=== PATIENT | female | born 2005 | race Caucasian/White ===

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

== ENCOUNTER 2025-08-28 11:41 | Emergency (ER) | payer OTHER, SELFPAY ==
--- OUTSIDE RECORDS SUMMARY | 2025-08-28 10:35 | XMS_ITS | Encounter Summary ---
Author Organization [facility] Address [address] [place] [address] Care Team Providers Care Lumber Piler Name Role Phone Radha Sanchez NP Primary Care Provider [phone] Reason for Visit * Reason Comments Cough Entered automaticall y based on patient selection in [facility]. Encounter Details Date Type Department Care Team (Late st Contact Info) Description 08/28/2025 10:35 AM MANAGER LEARNING E-Visit [facility] Virtual Care [address] [place] [phone] Avril Herman NP [address] [place] [address] [address] E-Visit for Cough Social History Tobacco Use Types Packs/Day Years Used Date Smoking Tobacco: Never Passive Smoke Exposure: Never Smokeless Tobacco: Never Alcohol Use Standard Drinks/Week Comments Never 0 (1 standard drink = 0.6 oz pur e alcohol) PHQ-2 Answer Date Recorded PHQ-2 Total Score (If total score is 3 or more points, staff should administer the PHQ-9) 0 07/02/2025 AUDIT-C Answer Date Recorded Q1: How often do you have a drink containing alcohol? Never 07/02/2025 Q2: How many drinks containi ng alcohol do you have on a typical day when you are drinking? Patient does not drink Q3: How often do you have si x or more drinks on one occasion? Never 07/02/2025 Personal Safety Answer Date Recorded Have you ever been in or are you currently in a harmful physical or emotional relationship or is someone making you feel afraid or unsafe? Denies 05/26/2023 Comments No Sex and Gender Information Value Date Recorded Sex Assigned at Not on file Legal Sex Female 8:04 PM MANAGER LEARNING Gender Identity Female 05/31/2018 9:47 AM CDT Sexual Orientation Not on file documented as of this encounter Miscellaneous Notes * E-Visit Note - Avril Herman NP - 08/28/2025 11:02 AM CST Julee Casanova 08/28/2025 E-Visit Submission Subjective/Objective: Julee Galvandwin contacted the office today via e-visit for Sinusitis. The patient-submitted questionnaire was assessed for pertinent information and the patient's problem list, medication list, and allergies were reviewed as part of the e-visit. The chart was updated to identify any changes in these areas. Assessment: No diagnosis found. Plan: Needs to be seen in person. Suspicion of Strep. Needs Strep test The patient was given information regarding any new medication(s) prescribed, if applicable, as well as any [id number] remedies. She was given instructions regarding follow up and timeframe if symptoms worsen or don???t improve. These instructions were included in the Zevia message reply tothe patient. Patient Instructions were included in the message reply to patient. My total encounter time on 08/28/2025 was 2 minutes which was spent in the activities documented inthe note. Avril Herman NP GER LEARNING documented in this encounter Plan of Treatment Not on file documented as of this encounter Visit Diagnoses Not on filedocumented in this encounter Care Teams Lumber Piler Relationship Specialty Start Date End Date Radha Sanchez NP [address] [facility] [address] [place] [address] PCP - General Internal Medicine 07/02/25 documented as of this encounter
[2025-08-28 11:47] VITALS: BP 150/76; PULSE 93; RESP 20; TEMP 37.1; O2SAT 99
--- OUTSIDE RECORDS SUMMARY | 2025-08-28 11:47 | XMS_ITS | Clinical Summary ---
Author Organization [facility] Address [address] [place] [address] Care Team Providers Care Manager Foreign Name Role Phone Klaudia Foote MD Primary Care Provider [phone] Source Comments [facility],non-owned Affiliates and Associated Physician Practices is amultiple site organization consisting of ambulatory clinics and hospital sitesin [place], [place], [place]. This disclosure is being madepursuant to the Care Everywhere program and may not contain all information available regarding this patient. Last updated 18.[facility] Allergies Active Allergy Reactions Criticality Noted Date Comments Latex Rash Medium 05/30/2018 Medications * Be aware that medications may not be up to date on this document. Alwaysverify current medications with the patient. desogestrel-et hinyl estradiol (MIRCETTE; AZURETTE; KARIVA) 0.15-0.02/0.01 MG (23/01) tablet 1 Active spironolactone (ALDACTONE) 100 MG tablet 1 Active acetaminophen (TYLENOL) 500 MG tablet Take 1,000 mg by mouth every 4 hours as needed for Fever or Pain Maximum allowable Acetaminophen amount = 4 Grams (4000 mg) / 24 hours. Active Active Problems Problem Noted Date Diagnosed Date Right ankle injury, initial encounter 01/04/2022 Social History Tobacco Use Types Packs/Day Years Used Date Smoking Tobacco: Never Comments Unknown Sex and Gender Information Value Date Recorded Sex Assigned at Not on file Legal Sex Female 10:09 AM EAR PULL MACHINE OPERATOR Gender Identity Not on file Sexual Orientation Not on file Last Filed Vital Signs Vital Sign Reading Time Taken Comments Blood Pressure - - Pulse - - Temperature - - Respiratory Rate - - Oxygen Saturation - - Inhaled Oxygen Concentration - - Weight 71.1 kg (156 lb 12 oz) 01/04/2022 3:01 PM CDT Height 168.8 cm (5' 6.46) 01/04/2022 3:01 PM CD T Body Mass Index 24.95 01/04/2022 3:01 PM CDT Plan of Treatment Health Maintenance Due Date Last Done Comments HIV SCREENING 2020 HPV VACCINE (1 - 3-dose series) 2020 CHLAMYDIA/GONORRHEA SCREENING 2021 MENINGOCOCCAL (Group B) VACC INE SHARED DECISION-MAKING (1 of 2 - Standard) 2021 HEPATITIS C SCREENING 04/22/2023 DTAP/TDAP/TD VACCINES (1 - Tdap) 2024 HEPATITIS B VACCINE (1 of 3 - 19+ 3-dose series) 2024 DEPRESSION SCREENING 09/05/2024 COVID-19 VACCINE (1 - 2024-2 6 season) 2025 INFLUENZA VACCINE (#1) 2025 10/27/2006 ZOSTER VACCINE (1 of 2) 2055 HIB VACCINE Aged Out No longer eligi ble based on patient's age to complete this topic MENINGOCOCCAL GROUPS A/C/Y/W VACCINE Aged Out No longer eligible b ased on patient's age to complete this topic PNEUMOCOCCAL VACCINE Aged Out No long er eligible based on patient's age to complete this topic Insurance [facility] Care Teams Manager Foreign Relationship Specialty Start Date End Date Klaudia Foote MD [address] [place] [id number] PCP - General Pediatrics 01/01/22
--- OUTSIDE RECORDS SUMMARY | 2025-08-28 11:47 | XMS_ITS | Encounter Summary ---
Author Organization [facility] Address [address] [place] [address] Care Team Providers Care Manager Sourcing Name Role Phone Radha Sanchez NP Primary Care Provider [phone] Encounter Details Date Type Department Care Team (Latest Contact Info) Description 07/05/2025 Results Follow-Up [facility] Primary Care at [address] [address] Radha Sanchez NP [address] [place] [address] [address] [place] [address] CBC with auto differential, Comprehensive metabolic panel, Lipid panel, Additional followed-up results: 9 Social History Tobacco Use Types Packs/Day Years [...] on file Legal Sex Female 8:04 PM BIBLICAL STUDIES PROFESSOR Gender Identity Female 05/31/2018 9:47 AM CDT Sexual Orientation Not on file documented as of this encounter Plan of Treatment Not on file documented as of this encounter Visit Diagnoses Diagnosis Bilateral hearing loss, unspecified hearing loss type- Primary documented in this encounter Care Teams Manager Sourcing Relationship Specialty Start Date End Date Radha Sanchez NP [address] [address] PCP - General Internal Medicine 07/02/25 documented as of this encounter
--- OUTSIDE RECORDS SUMMARY | 2025-08-28 11:47 | XMS_ITS | Clinical Summary ---
Author Organization [facility] Address [address] [place] [address] Care Team Providers Care Retail Warehouse Supervisor Name Role Phone Radha Sanchez NP Primary Care Provider [phone] Allergies Active Allergy Reactions Criticality Noted Date Comments Latex Rash Medium 05/30/2018 Medications cetirizine (ZyrTEC) 10 mg chewable tablet Take 1 tablet (10 mg total) by mouth daily Active levonorgestreL (Mirena) IUD Take 1 device by intrauterine route. 4 Active Hospital, Clinic, or Other Facility Administered Medication Ordered Dose Route Frequency Start Date End Date Status perflutren protein-a (OPTISON) 3 mL in sodium chloride 0.9% 8 mL syringe 1 - 8 mL IV Once in imaging 04/11/2024 Active Active Problems Problem Noted Date Diagnosed Date Wellness examination 07/02/2025 Assessment & Plan (07/02/2025 9:38 AM CDT): Routine health maintenance objectives discussed and orders placed for any outstanding screening studies. Physical exam performed as above. Routine annual labs obtained and will be reviewed with patient when results available. Encouraged regular physical activity--moderate activity for a total of 150 minutes per week over 3-5 days. Encouraged healthy diet with regular fresh fruits and vegetables limited in processed carbohydrates. Alcohol use - never Nicotine use - never Depression screening - PHQ Screening Over the past 2 weeks, how often have you been bothered by any of the following problems? Little Interest or Pleasure in Doing Things: 0-Not at all Feeling Down, Depressed, or Hopeless: 0-Not at all PHQ-2 Total Score (If total score is 3 or more points, staff should administer the PHQ-9): 0 Orders: CBC with auto differential; Future Comprehensive metabolic panel; Future Lipid panel; Future Resolved Problems Problem Noted Date Diagnosed Date Resolved Date Sinus tachycardia 04/11/2024 07/02/2025 Assessment & Plan (04/11/2024 8:34 AM CDT): [...] resolve or improve over time Diarrhea 05/18/2023 07/02/2025 Weight loss 05/18/2023 07/02/2025 Contusion of right foot 06/02/201806/06 Closed fracture of fifth metatarsal bone 11/29/2016 07/02/2025 Encounters Date Type Department Care Team Description 08/28/2025 10:35 AM BOAT OAR MAKER E-Visit [facility] Medical [facility] Virtual Care [address] [place] [address] Avril Herman NP E-Visit for Cough 08/28/2025 Patient Self-Triage [facility] HealthCare/ Physicians [address] [place] [address] Mychart, Generic Provider 07/26/[address] [facility] Medical [facility] Primary Care at [address] [address] Therien, Radha R., DEBT COLLECTION SPECIALIST Bilateral hearing loss, unspecified hearing loss type (Primary Dx) 07/10/2025 2:45 PM BOAT OAR MAKER - 07/10/2025 11:59 PM BOAT OAR MAKER Hospital Encounter [facility] [address] [place] [address] Bilateral hearing loss, unspecified hearing loss type Discharge Disposition: Discharge to home or self care 07/05/2025 Results Follow-Up [facility] Primary Care at [address] [address] Radha Sanchez NP CBC with auto differential, Comprehensive metabolic panel, Lipid panel, Additional followed-up results: 9 07/02/2025 9:45 AM CDT Lab [address] [address] Wellness examination; Screening for thyroid disorder; Fatigue, unspecified type; Hair loss; Need for hepatitis C screening test 07/02/2025 9:00 AM CDT Office Visit [facility] Primary Care at [address] [address] Radha Sanchez DEBT COLLECTION SPECIALIST BMI 26.0-26.9,adult (Primary Dx); Encounter for immunization; Wellness examination; Screening for thyroid disorder; Fatigue, unspecified type; Bilateral hearing loss, unspecified hearing loss type; Need for hepatitis C screening test; Hair loss from Last 3 Months Immunizations Immunization Administration Dates Next Due DTaP, Unspecified 12/25/2009, 7,2005,09/13,2005 HPV, Quadrivalent 03/30/2021,04/23/2020 Hep A, Unspecified 05/03/2008,10/27/2006 Hep B, Unspecified 2005, 6,2005,04/26 HiB 2005,2005 Influenza, Quadrivalent, Spl it, Preservative Free, Intramuscular 08/25/2023 Influenza, Trivalent, Preser vative Free, Intramuscular 07/02/2025,07/29/2024 Influenza, Unspecified 07/29/2024 MMR 12/25/2009,04/29/2006 Meningococcal A,C,W,Y-TT (Ak a Menquadfi) 04/30/2022 Meningococcal B, OMV (Bexsero) 03/23/2023 Meningococcal Conjugate (Menveo) 2016 Pneumococcal Conjugate PCV 13 04/29/2006 ,2005,2005,07/02 Polio, Unspecified 12/25/2009, 6,2005,07/02 Tdap 03/01/2016 Varicella 12/25/2009,04/29/2006 Surgical History Surgery Date Site/Laterality Comments WISDOM TOOTH EXTRACTION Medical History Medical History Date Comments No known health problems Anemia Family History Medical History Relation Name Comments No Known Problems Father No Known Problems Mother Relation Name Status Comments Father Alive Mother Alive Social History Tobacco Use Types Packs/Day Years Used Date Smoking Tobacco: Never Passive Smoke Exposure: Never Smokeless Tobacco: Never Tobacco Cessation:Counseling Given: Not Answered Alcohol Use Standard Drinks/Week Comments Never 0 [...] on file Legal Sex Female 8:04 PM BOAT OAR MAKER Gender Identity Female 05/31/2018 9:47 AM CDT Sexual Orientation Not on file Last Filed Vital Signs Vital Sign Reading Time Taken Comments Blood Pressure 90/54 07/02/2025 9:04 AM CDT Pulse 107 07/02/2025 9:04 AM CDT Temperature 36.3 C (97.4 F) 07/02/2025 9:04 AM CDT Respiratory Rate 16 07/02/2025 9:04 AM CDT Oxygen Saturation 99% 07/02/2025 9:04 AM CDT Inhaled Oxygen Concentration - - Weight 76.7 kg (169 lb) 07/02/2025 9:04 AM CDT Height 170.2 cm (5' 7) 07/02/2025 9:04 AM CDT Body Mass Index 26.47 07/02/2025 9:04 AM CDT Plan of Treatment Health Maintenance Due Date Last Done Comments Meningococcal B Vaccine (2 o f 2 - Bexsero SCDM 2-dose series) 09/23/2023 03/23/2023 Covid-19 Vaccine (5 - 2024-2 6 season) 2025 07/29/2024, 08/18/2021, 02/04/2021, Additional history exists DTaP/Tdap/Td Vaccine (7 - Td or Tdap) 03/01/2026 03/01/2016, 12/25/2009, 10/27/2006, Additional history exists Depression Screening 07/02/2026 07/02/2025 Regular Well Visit/Exam 18-64 07/02/2026 07/02/2025 Hepatitis B Screening Completed 2005 , 2005, 2005, Additional history exists Pneumococcal vaccine <65 Completed 006, 2005, 2005, Additional history exists Varicella Vaccines Completed 12/25/2009, 04/29/2006 HPV Vaccines Completed 03/30/2021, 04/23/2020 Meningococcal Vaccine Completed 04/30/2022, 016 Hepatitis C Screening Completed 07/02/2025 Influenza Vaccine Completed 07/02/2025, , 07/29/2024, Additional history exists Procedures Procedure Name Priority Date/Time Associated Diagnosis Comments MRI INTERNAL AUDITORY CANAL INCL BRAIN W WO CONTRAST Schedule Routine, Read Routine (OP Routine) 07/10/2025 3:37 PM BOAT OAR MAKER Bilateral hearing loss, unspecified hearing loss type EGFR Routine 07/02/2025 9:54 AM CDT Wellness examination DIFFERENTIAL AUTO Routine 07/02/2025 9:5 4 AM CDT Wellness examination IRON PROFILE W/ IBC Routine 07/02/2025 9 :54 AM CDT Fatigue, unspecified type Hair loss FERRITIN Routine 07/02/2025 9:54 AM CDT Fatigue, unspecified type Hair loss VITAMIN B12 Routine 07/02/2025 9:54 AM CDT Fatigue, unspecified type Hair loss VITAMIN D 25 HYDROXY Routine 07/02/2025 9:54 AM CDT Fatigue, unspecified type THYROID FUNCTION CASCADE Routine 07/02/2025 9:54 AM CDT Screening for thyroid disorder Fatigue, unspecified type Hair loss LIPID PANEL Routine 07/02/2025 9:54 AM CDT Wellness examination COMPREHENSIVE METABOLIC PANEL Routine 07/02/2025 9:54 AM CDT Wellness examination CBC WITH AUTO DIFFERENTIAL Routine 07/02/2025 9:54 AM CDT Wellness examination HEPATITIS C ANTIBODY Routine 07/02/2025 9:54 AM CDT Need for hepatitis C screening test from Last 3 Months Results * MRI Internal Auditory Canal Brain W WO Contrast (07/10/2025 3:37 PM BOAT OAR MAKER) Anatomical Region Laterality Modality Head and Neck N/A Magnetic Resonan ce 07/10/2025 3:46 PM BOAT OAR MAKER Impressions 07/10/2025 3:46 PM BOAT OAR MAKER No acute intracranial process with slight chronic findings as above. Electronically signed by: Gibran Sanderson M.D. Narrative 07/10/2025 3:46 PM BOAT OAR MAKER EXAMINATION: MRI BRAIN WITHOUT AND WITH CONTRAST (IAC PROTOCOL) REASON FOR STUDY: Chronic unspecified type and laterality hearing loss for 3 years. No provided focal neurologic deficits. No provided history of trauma or inciting and/or aggravating events. No head or neck surgeries. TECHNIQUE: Multiplanar imaging of the brain includes noncontrast T1, T2, FLAIR, diffusion with ADC map and post contrast T1 sequences. Additional sequence(s) sensitive to blood products. Images saved to PACS. CONTRAST: 15 mL Gadoterate Meglumine was administered via peripheral IV site. COMPARISON: No prior neuroimaging available at time of interpretation. FINDINGS: CEREBRUM: No acute intra-axial hemorrhage. No edema, mass effect, midline shift, or herniation. WHITE MATTER: Few widely scattered punctate to tiny periventricular subcortical T2/FLAIR hyperintense white matter matter lesions, nonspecific, though can be seen secondary to chronic microvascular ischemia, chronic headaches sores include migraine headaches, demyelinating disease to include multiple sclerosis, and as sequelae of prior traumatic and/or inflammatory, to include infectious, insults. Correlate with clinical context. POSTERIOR FOSSA: Brainstem and cerebellum are unremarkable. No abnormal enhancement. DIFFUSION IMAGING: No restricted diffusion to suggest acute/subacute ischemia or infarct. EXTRAAXIAL SPACES: No extra-axial fluid collection, mass, or abnormal enhancement to include at the IACs or about the cerebellopontine angles. BRAIN VOLUME: Cerebral volume within normal limits for age. PITUITARY: Unremarkable. VASCULATURE: No flow disturbance evident. SCALP/CALVARIUM: Scalp unremarkable. Calvarium unremarkable. ORBITS: No acute abnormality. Ocular lenses and globes normal in conformation and position. PARANASAL SINUSES AND MASTOIDS: Paranasal sinuses clear. Mastoid air cells well-developed and well aerated. OTHER: None. Procedure Note Gibran Sanderson MD - 07/10/2025 EXAMINATION: MRI BRAIN WITHOUT AND WITH CONTRAST (IAC PROTOCOL) REASON FOR STUDY: Chronic unspecified type and laterality hearing loss for 3 years. No provided focal neurologic deficits. No provided history of trauma or inciting and/or aggravating events. No head or neck surgeries. TECHNIQUE: Multiplanar imaging of the brain includes noncontrast T1, T2, FLAIR, diffusion with ADC map and post contrast T1 sequences. Additional sequence(s) sensitive to blood products. Images saved to PACS. CONTRAST: 15 mL Gadoterate Meglumine was administered via peripheral IV site. COMPARISON: No prior neuroimaging available at time of interpretation. FINDINGS: CEREBRUM: No acute intra-axial hemorrhage. No edema, mass effect, midline shift, or herniation. WHITE MATTER: Few widely scattered punctate to tiny periventricular subcortical T2/FLAIR hyperintense white matter matter lesions, nonspecific, though can be seen secondary to chronic microvascular ischemia, chronic headaches sores include migraine headaches, demyelinating disease to include multiple sclerosis, and as sequelae of prior traumatic and/or inflammatory, to include infectious, insults. Correlate with clinical context. POSTERIOR FOSSA: Brainstem and cerebellum are unremarkable. No abnormal enhancement. DIFFUSION IMAGING: No restricted diffusion to suggest acute/subacute ischemia or infarct. EXTRAAXIAL SPACES: No extra-axial fluid collection, mass, or abnormal enhancement to include at the IACs or about the cerebellopontine angles. BRAIN VOLUME: Cerebral volume within normal limits for age. PITUITARY: Unremarkable. VASCULATURE: No flow disturbance evident. SCALP/CALVARIUM: Scalp unremarkable. Calvarium unremarkable. ORBITS: No acute abnormality. Ocular lenses and globes normal in conformation and position. PARANASAL SINUSES AND MASTOIDS: Paranasal sinuses clear. Mastoid air cells well-developed and well aerated. OTHER: None. IMPRESSION: No acute intracranial process with slight chronic findings as above. Electronically signed by: Gibran Sanderson M.D. Radha Sanchez DEBT COLLECTION SPECIALIST IMG MRI PROCEDURES Final R esult * eGFR (07/02/2025 9:54 AM CDT) eGFR >90 >=60 mL/min/1. 73 m2 Comment: Interpretive Data Reference Interval Normal >/= 90 mL/min/1.73m2 Mildly decreased* 60 - 89 mL/min/1.73m2 Mildly to moderately decreased 45 - 59 mL/min/1.73m2 Moderately to severely decreased 30 - 44 mL/min/1.73m2 Severely decreased 15 - 29 mL/min/1.73m2 Kidney Failure < 15 mL/min/1.73m2 *Relative to young adult level Estimated glomerular filtration rate is determined by the 2020 CKD-EPI equation recommended by the National Kidney Foundation (A Unifying Approach to GFR Estimation: Recommendations of the NKF-ASK Task Force on Reassessing the Inclusion of Race in Diagnosing Kidney Disease, JASN 2020). The CKD-EPI equation should not be used for patients with unstable renal function and has not been validated in children and those over 70. Current interpretive data was last reviewed 2021. Blood 07/02/2025 9:54 AM CDT 07/02/2025 1:51 PM CDT us Radha Sanchez NP LAB BLOOD ORDERABLES Final Result [facility] [address] [facility] Department [place] [address] * Differential, auto (07/02/2025 9:54 AM CDT) Pathologist [facility] Neutrophil abs 4.14 1.50 - 6.50 K/cumm Imm gran abs 0.01 0.00 - 0.10 K/cumm [facility] Lymphocyte abs 2.01 0.80 - 3.30 K/cumm [facility] Monocyte abs 0.58 0.20 - 0.80 K/cumm [facility] Eosinophil abs 0.11 0.00 - 0.50 K/cumm [facility] Basophil abs 0.03 0.00 - 0.10 K/cumm [facility] Neutrophil pct 60.3 % [facility] Comment: Interpretive Data Percent cell count reference ranges are not reported, since discordance with absolute values may lead to misinterpretation of CBC data. Current Interpretive Data was last revised on 2017. Imm gran pct 0.1 % [facility] Comment: Interpretive Data Percent cell count reference ranges are not reported, since discordance with absolute values may lead to misinterpretation of CBC data. Current Interpretive Data was last revised on 2017. Lymphocyte pct 29.2 % [facility] Comment: Interpretive Data Percent cell count reference ranges are not reported, since discordance with absolute values may lead to misinterpretation of CBC data. Current Interpretive Data was last revised on 2017. Monocyte pct 8.4 % [facility] Comment: Interpretive Data Percent cell count reference ranges are not reported, since discordance with absolute values may lead to misinterpretation of CBC data. Current Interpretive Data was last revised on 2017. Eosinophil pct 1.6 % [facility] Comment: Interpretive Data Percent cell count reference ranges are not reported, since discordance with absolute values may lead to misinterpretation of CBC data. Current Interpretive Data was last revised on 2017. Basophil pct 0.4 % [facility] Comment: Interpretive Data Percent cell count reference ranges are not reported, since discordance with absolute values may lead to misinterpretation of CBC data. Current Interpretive Data was last revised on 2017. Blood 07/02/2025 9:54 AM CDT 07/02/2025 1:53 PM CDT Radha Sanchez DEBT COLLECTION SPECIALIST LAB BLOOD ORDERABLES Final Result Performing Organization Address [facility] Co de Phone Number [address] [place] [address] * Thyroid Function Roberts (07/02/2025 9:54 AM CDT) Pathologist [facility] TSH 0.73 0.30 - 4.20 mcIUnit/mL Blood 07/02/2025 9:54 AM CDT 07/02/2025 1:51 PM CDT Radha Sanchez DEBT COLLECTION SPECIALIST LAB BLOOD ORDERABLES Final Result Performing Organization Address [facility] de Phone Number [address] [place] [address] * (ABNORMAL) Iron profile w/ IBC (07/02/2025 9:54 AM CDT) Pathologist [facility] Iron 172(H) 35 - 145 mcg/dL TIBC 281 250 - 400 mcg/dL [facility] Transferrin saturation 61(H) 20 - 50 % [facility] Blood 07/02/2025 9:54 AM CDT 07/02/2025 1:51 PM CDT Radha Sanchez DEBT COLLECTION SPECIALIST LAB BLOOD ORDERABLES Final Result Performing Organization Address [facility] Co de Phone Number [address] [place] [address] * CBC with auto differential (07/02/2025 9:54 AM CDT) WBC 6.88 3.80 - 9.90 K/cumm Hgb 13.5 11.9 - 15.5 g/dL [facility] Hct 41.3 35.6 - 45.5 % [facility] Plt 219 150 - 400 K/cumm [facility] MPV 11.3 9.1 - 12.3 fL [facility] RBC 4.46 3.90 - 5.20 M/cumm [facility] MCV 92.6 81.3 - 96.4 fL [facility] MCH 30.3 27.1 - 33.3 pg [facility] MCHC 32.7 32.3 - 35.7 g/dL [facility] RDW CV 12.0 11.1 - 14.9 % [facility] RDW SD 40.6 35.7 - 48.1 fL [facility] NRBC abs 0.00 0.00 - 0.01 K/cumm [facility] Blood 07/02/2025 9:54 AM CDT 07/02/2025 1:53 PM CDT Radha Sanchez DEBT COLLECTION SPECIALIST LAB BLOOD ORDERABLES Final Result [facility] [address] [facility] Department of Laboratories [place], [place] [id number] * Hepatitis C antibody Blood (07/02/2025 9:54 AM CDT) Hep C Ab Nonreactive Nonreactive Comment: Antibodies to HCV not detected. Does NOT exclude the possibility of recent exposure to HCV. Current interpretive data was last revised on 22 Interpretive Data Nonreactive: Antibodies to HCV not detected. Does NOT exclude the possibility of recent exposure to HCV. Equivocal: Equivocal for HCV antibodies. Supplemental molecular testing will be automatically performed to determine infection status in accordance with current CDC screening recommendations. Reactive: Positive for HCV antibodies. This may represent current or past HCV infection. Supplemental molecular testing will be automatically performed to determine current infection status in accordance with current CDC screening recommendations. Interpretive data was last revised on 2019. Blood 07/02/2025 9:54 AM CDT 07/02/2025 1:51 PM CDT Radha Sanchez DEBT COLLECTION SPECIALIST LAB MICROBIOLOGY - GENERAL ORDERABLES Final Result Performing Organization Address City/[facility]/ZIP Co de Phone Number [address] [place] [address] * (ABNORMAL) Vitamin D 25 hydroxy (07/02/2025 9:54 AM CDT) Vitamin D 25-OH 25.0(L) 30.0 - 80.0 ng/mL Blood 07/02/2025 9:54 AM CDT 07/02/2025 1:51 PM CDT Radha Sanchez DEBT COLLECTION SPECIALIST LAB BLOOD ORDERABLES Final Result Performing Organization Address [facility] Co de Phone Number [address] [place] [address] * (ABNORMAL) Ferritin (07/02/2025 9:54 AM CDT) Pathologist [facility] Ferritin 231(H) 13 - 150 ng/mL Blood 07/02/2025 9:54 AM CDT 07/02/2025 1:51 PM CDT Radha Sanchez DEBT COLLECTION SPECIALIST LAB BLOOD ORDERABLES Final Result Performing Organization Address City/[facility] Co de Phone Number [address] [place] [address] * Vitamin B12 (07/02/2025 9:54 AM CDT) Vitamin B12 528 230 - 1,250 pg/mL Blood 07/02/2025 9:54 AM CDT 07/02/2025 1:51 PM CDT Radha Sanchez DEBT COLLECTION SPECIALIST LAB BLOOD ORDERABLES Final Result Performing Organization Address City/[facility]/ZIP Co de Phone Number [address] [place] [address] * Lipid panel (07/02/2025 9:54 AM CDT) Cholesterol 196 30 - 199 mg/dL Comment: Interpretive Data Ages < or = 19 years Acceptable: <170 mg/dL Borderline high: 170-199 mg/dL High: >or= 200 mg/dL Ages > or = 20 years Desirable: <200 mg/dL Borderline high: 200-239 mg/dL High: >or= 240 mg/dL Literature References: 1. Expert Panel on Integrated Guidelines for Cardiovascular Health and Risk Reduction in Children and Adolescents. Pediatrics 2011;128:S213 2. NCEP Expert Panel. Circulation 2004;110:227 Current Interpretive Data was last revised on 2018. Triglycerides 149 <=149 mg/dL [facility] Comment: Interpretive Data Ages < or = 9 years Acceptable: <75 mg/dL Borderline high: 75-99 mg/dL High: >or= 100 mg/dL Ages 10 to 20 years Acceptable: <90 mg/dL Borderline high: 90-129 mg/dL High: >or= 130 mg/dL Ages > or = 20 years Desirable: <150 mg/dL Borderline high: 150-199 mg/dL High: 200-499 mg/dL Very high: >or= 499 mg/dL Literature References: 1. Expert Panel on Integrated Guidelines for Cardiovascular Health and Risk Reduction in Children and Adolescents. Pediatrics 2011;128:S213 2. NCEP Expert Panel. Circulation 2004;110:227 Current Interpretive Data was last revised on 2018. HDL 41 >=40 mg/dL [facility] Comment: Interpretive Data Ages < or = 19 years Acceptable: >45 mg/dL Borderline low: 40-45 mg/dL Low: <40 mg/dL Ages > or = 20 years Desirable: >or= 60 mg/dL Low: <40 mg/dL Literature References: 1. Expert Panel on Integrated Guidelines for Cardiovascular Health and Risk Reduction in Children and Adolescents. Pediatrics 2011;128:S213 2. NCEP Expert Panel. Circulation 2004;110:227 Current Interpretive Data was last revised on 2018. LDL, calculated 128 <=129 mg/dL [facility] Comment: Interpretive Data Ages < or = 19 years Acceptable: <110 mg/dL Borderline high: 110-129 mg/dL High: >or= 130 mg/dL Ages > or = 20 years Optimal: <100 mg/dL Near optimal: 100-129 mg/dL Borderline high: 130-159 mg/dL High: >160 mg/dL Calculated using the Peña LDL-C estimating equation. This equation was implemented on 2024. Prior to this date LDL-C was estimated using the Friedewald equation. Literature References: 1. Expert Panel on Integrated Guidelines for Cardiovascular Health and Risk Reduction in Children and Adolescents. Pediatrics 2011;128:S213 2. NCEP Expert Panel. Circulation 2004;110:227 3. Peña Adams et al. LUNA Cardiol. 2020 January 03;5(5):540-548. doi: 10.1001/[email or web address].2020.0013 Current Interpretive Data was last revised on 2024. Non-HDL Cholesterol 155 mg/dL [facility] Comment: Interpretive Data Ages < or = 19 years Acceptable: <120 mg/dL Borderline high: 120-144 mg/dL High: >145 mg/dL Ages > or = 20 years When triglycerides are >200 mg/dL, Non-HDL cholesterol is a secondary target of therapy with treatment goals that are 30 mg/dL greater than the LDL cholesterol target. Literature References: 1. Expert Panel on Integrated Guidelines for Cardiovascular Health and Risk Reduction in Children and Adolescents. Pediatrics 2011;128:S213 2. NCEP Expert Panel. Circulation 2004;110:227 Current Interpretive Data was last revised on 2018. Chol/HDL ratio 5 [facility] Blood 07/02/2025 9:54 AM CDT 07/02/2025 1:51 PM CDT Narrative [facility] - 07/02/2025 2:40 PM CDT Has the patient been fasting for 8 hours or more?->Yes us Radha Sanchez NP LAB BLOOD ORDERABLES Final Result [facility] [address] [facility] Department [place] [address] * Comprehensive metabolic panel (07/02/2025 9:54 AM CDT) Sodium 141 135 - 145 mmol/L Potassium, pl 3.7 3.3 - 4.9 mmol/L [facility] Chloride 103 97 - 110 mmol/L [facility] CO2 27 22 - 32 mmol/L [facility] Anion gap 11 2 - 15 mmol/L [facility] BUN 13 6 - 25 mg/dL [facility] Creatinine 0.72 0.60 - 1.10 mg/dL [facility] Glucose 102 70 - 199 mg/dL [facility] Comment: Interpretive Data Fasting glucose >/= 126 mg/dl is diagnostic for diabetes. Fasting is defined as no caloric intake for at least 8 hours. Fasting glucose between 100 mg/dl to 125 mg/dl is diagnostic of prediabetes. In a patient with classic symptoms of hyperglycemia or hyperglycemic crisis, a random glucose >/= 200 mg/dl is diagnostic for diabetes. In the absence of unequivocal hyperglycemia, results should be confirmed by repeat testing. The classification and Diagnosis of Diabetes Diabetes Care 202; 46: S19-S40. Current interpretive data was last revised 2022. Calcium 9.8 8.5 - 10.3 mg/dL [facility] Bilirubin, total 0.4 0.1 - 1.2 mg/dL [facility] Protein, pl 7.2 6.5 - 8.5 g/dL [facility] Albumin 4.6 3.5 - 5.0 g/dL [facility] Alk phos 99 40 - 130 Units/L [facility] ALT 15 7 - 45 Units/L [facility] AST 24 10 - 45 Units/L [facility] Blood 07/02/2025 9:54 AM CDT 07/02/2025 1:51 PM CDT Radha Sanchez DEBT COLLECTION SPECIALIST LAB BLOOD ORDERABLES Final Result [facility] [address] [facility] Department [place] [address] from Last 3 Months Insurance [facility] CLAIMS [facility] CLAIMS [facility] CLAIM[facility]S [facility] CLAIMS Care Teams Retail Warehouse Supervisor Relationship Specialty Start Date End Date Radha Sanchez NP [address] [facility] [address] [place] [address] PCP - General Internal Medicine 07/02/25
--- OUTSIDE RECORDS SUMMARY | 2025-08-28 11:47 | XMS_ITS | Encounter Summary ---
Author Organization [facility] Address [address] [place] [address] Care Team Providers Care Saturator Operator Name Role Phone Radha Sanchez NP Primary Care Provider [phone]- [phone] Encounter Details Date Type Department Care Team (Late st Contact Info) Description 08/28/2025 Patient Self-Triage [facility] [address] [place] [address] Elodia Nolan Provider [address] [place], [place] [id number] Social History Tobacco Use Types Packs/Day Years [...] on file Legal Sex Female 8:04 PM TIE LAYER Gender Identity Female 05/31/2018 9:47 AM CDT Sexual Orientation Not on file documented as of this encounter Plan of Treatment Not on file documented as of this encounter Visit Diagnoses Not on filedocumented in this encounter Care Teams Saturator Operator Relationship Specialty Start Date End Date Radha Sanchez NP [address] [facility] [address] [place] [address] PCP - General Internal Medicine 07/02/25 documented as of this encounter
--- OUTSIDE RECORDS SUMMARY | 2025-08-28 11:48 | XMS_ITS | Continuity of Care Document ---
Author Organization [facility] [place] Address [address] [place] [address] Care Team Providers Care Brasswind Instrument Repairer Name Role Phone ELVA AG Primary Care Provider [phone] Assessment Encounter Date Assessment Date Assessment LastModified by Organization Details LastModified Time 08/07/2025 08/07/2025 Annual gynecological exam performed. Patient will come back in a year unless there are new symptoms. [email or web address] Not available 08/07/2025 12:16:45 Plan of Treatment Reminders Order Date Submit Date Provider Last Modified By Organization Details Last Modified Time Details Appointments [facility]- EST 026 11:00AM BENITA FISHER NP Not available Not available Not available Lab None record ed. Referral None record ed. Procedures None record ed. Surgeries None record ed. Imaging None record ed. Medication Orders None record ed. Patient TargetsNo targets recorded. Patient InstructionsNo instructions recorded. Reason for Referral None Reported. Problems Name Problem SNOMED Code Status Onset Date Resolution Date Notes Provider Name and Address Organization Details Recorded Time Finding of menstrual bleeding Completed 201804/29/2021 Menorrhag ia;Record ed Elsewhere : No Locati on: [facility] So urce: EHR Chron ic: N Practic e ID: [id number] Bill able Time: 03:30:00 PM Lola marshall [facility] 18:04:10 Pain in female genitalia Completed 201904/29/2021 Dysmenorr hea;Recor ded Elsewhere : No Locati on: [facility] So urce: EHR Chron ic: N Practic e ID: [id number] Bill able Time: 04:30:00 PM Lola Jacek marshall, [facility] 18:04:08 Finding of regularit y of menstrual cycle Completed 201904/29/2021 Irregular bleeding; Recorded Elsewhere : No Locati on: [facility] So urce: EHR Chron ic: N Practic e ID: [id number] Bill able Time: 04:30:00 PM Lola Raymondtz joanna, [facility] 18:04:11 Problem Notes None recorded. Procedures Surgical History Date Name Laterality Status Provider Name and Address Organization Details Recorded Time 08/22/20 24 IUD Insertion completed BENITA FISHER NP [address], [place], [address], [facility] 08/22/2024 16:15:57 05/26/20 23 completed [facility] 08/01/2024 11:04:44 05/26/20 23 Date of Last Colonoscopy completed [facility] 08/01/2024 11:04:44 05/26/20 23 colonoscopy completed Ariana Chávez VISHAL- [address], [place], [address], [facility] 06/22/2023 17:34:48 04/05/20 21 extraction of wisdom tooth completed Lola Raed [facility] 04/29/2021 18:07:06 Orthopedic Surgery completed Loladuncan Read [facility] 12/29/2022 17:08:07 Imaging Results None recorded. Procedure Notes None recorded. Medical Equipment None Reported. Allergies Allergen ID Allergen Name Allergen Category Reaction Reaction Severity Criticality Documentation Date Start Date Code Code System Note Provider Name and Address Organization Details Recorded Time 47109 latex environme nt,medica tion Not available Not available Not available 08/22/2020 72237 91 RxNorm Comme nt: [facility]; Not Available [facility] 0 14:17:56 Medications Name Sig Start Date Stop [...] Prescrib ed Elsewher e: No Locat ion: [facility] odify By: valentin ireland DateTime : 08/21/20 19 03:30:00 PM Not Available Not Available Not Available prednison e 20 mg tablet 08/01 completed Not Available Not Available Not Available spironola ctone 100 mg tablet TAKE 1 TABLET BY MOUTH EVERY DAY active Not Available Not Available No t Available penicilli n V potassium 500 mg tablet 12/29 completed Not Available Not Available Not Available clindamyc in 1 %-benzoyl peroxide 5 % topical gel 08/01 completed Not Available Not Available Not Available triamcino lone acetonide 0.1 % topical ointment 10/19 completed Not Available Not Available Not Available methylpre dnisolone 4 mg tablets in a dose pack 06/22 completed Not Available Not Available Not Available dicyclomi ne 10 mg capsule 08/01 completed Not Available Not Available Not Available Sprintec (28) 0.25 mg-0.035 mg tablet take 1 tablet by oral route every day 08/21 completed Prescrib ed Elsewher e: No Locat ion: [facility] odify By: sgrotefe ndt Jino terrie DateTime : 05/31/20 19 03:15:00 PM Not Available Not Available Not Available Lo Loestrin Fe 1 mg-10 mcg (24)/10 mcg (2) tablet take 1 tablet by oral route every day 08/21 completed Prescrib delma Terrell e: Gladys Locat ion: Flako lamas [facility] M jose By: chandrika gil DateTime : 08/21/20 03:30:00 PM Not Available Not Available Not Available Viorele (28) 0.15 mg-0.02 mg (21)/0.01 mg (5) tablet TAKE 1 TABLET BY MOUTH EVERY DAY 08/07 completed Not Available Not Available Not Available adapalene 0.1 %-benzoyl peroxide 2.5 % topical gel with pump 08/01 completed Not Available Not Available Not Available Zumandimi ne (28) 3 mg-0.03 mg tablet TAKE 1 TABLET BY MOUTH ONCE DAILY FOR 28 DAYS 12/29 completed Not Available Not Available Not Available aspirin 81 mg capsule Take 1 capsule every day by oral route. 08/07 completed Not Available Not Available Not Available Vitals Date Recorded Body height Body mass index (BMI) [Percentile] Per age and sex Body mass index (BMI) Body weight Systolic And Diastolic Provider Name and Address Organization Details Last Updated DateTime 08/07/2025 167.64 cm 87 % 27.3 kg/m2 14903.5 5 g 132/84 mm[Hg] Madelinjocelin Rollins [facility] 12:23:39 Social History Question Answer Notes LastModified by Organizat ion Details LastModified Time Tobacco Smoking Status Never Smoker Lola marshall, [facility] 12/29/2022 17:08:07 If You Are , What Was Your Level Of Alcohol Consumption Prior To ? None [email or web address] Information not available 12/29/2022 How Many Years Have You Consumed Alcohol? 0 [email or web address] Information not available 08/22/2024 Are You Blind Or Do You Have Difficulty Seeing? Yes [email or web address] Information n ot available 08/01/2024 What Is Your Level Of Caffeine Consumption? Moderate [email or web address] Information not available 12/29/2022 How Much Tobacco Do You Chew? None [email or web address] Information not available 12/29/2022 In The 14 Days Before Symptom Onset, Have You Had Close Contact With A Laboratory-confirm ed COVID-19 While That Case Was Ill? No Information n ot available 04/29/2021 In The 14 Days Before Symptom Onset, Have You Had Close Contact With A Person Who Is Under Investigation For COVID-19 While That Person Was Ill? No [email or web address] Information not available 04/29/2021 Have You Been To An Area Known To Be High Risk For COVID-19? No [email or web address] Information not available 04/29/2021 Are You Deaf Or Do You Have Serious Difficulty Hearing? No [email or web address] Information not available 04/29/2021 What Type Of Diet Are You Following? REGULAR [email or web address] Information n ot available 04/29/2021 What Is The Highest Grade Or Level Of School You Have Completed Or The Highest Degree You Have Received? WC63905-6 [email or web address] Information not available 12/29/2022 Are There Any Guns Present In Your Home? Yes Information not available 12/29/2022 Do You Use Protection During Sex? Always [email or web address] Information not available 12/29/2022 Do You Use Your Seat Belt Or Car Seat Routinely? Yes [email or web address] Information not available 04/29/2021 Do You Have Smoke And Carbon Monoxide Detectors In Your Home? Yes [email or web address] Information not available 04/29/2021 How Much Tobacco Do You Smoke? No [email or web address] Information not available 08/01/2024 Do You Use Sunscreen Routinely? Yes [email or web address] Information not available 04/29/2021 Has Tobacco Cessation Counseling Been Provided? No [email or web address] Information not available 12/29/2022 Have You Used IV Drugs? No [email or web address] Information not available 12/29/2022 Do You Have Difficulty Walking Or Climbing Stairs? No [email or web address] Information not available 12/29/2022 Sex: Unknown Functional Status Question Answer Note LastModified by Organizat ion Details LastModified Time Do you use any illicit or recreational drugs? No [email or web address] Information not available 04/29/2021 Do you or have you ever used any other forms of tobacco or nicotine? No [email or web address] Information not available 12/29/2022 What is your level of alcohol consumption? None [email or web address] Information not available 04/29/2021 Are you able to walk independently without assistance or assistive devices? 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 No [email or web address] Information not available 12/29/2022 What is your exercise level? Occasional [email or web address] Information not available 04/29/2021 Mental Status Question Answer Note LastModified by Organization D etails LastModified Time Do you feel stressed (tense, restless, nervous, or anxious, or unable to sleep at night)? [id number] [email or web address] Information not available 08/22/2024 Family History Relationship Description Onset Age of this Age Resolved Age Notes LastModified by Organization Details LastModified Time Mother Polycystic ovary syndrome [email or web address] Not available 04/29 18:06:28 Notes:Mother: Polycystic ova reymundo syndrome Medical History Condition Response Allergies (Food, seasonal, environmental ) N Other N Breast Cancer N Drug/Latex Allergies/Reactions N Blood Transfusion N Dermatologic Disorders N Lung Disease N Defects or Inherited Disease N Breast Problem N Gestational Diabetes N Hematologic disorders N Anesthesia Complications N History of STI N Deep Vein Thrombosis N Polycystic ovary syndrome N Anxiety Disorder N Autoimmune disease N Arthritis N Infertility N Polyps N Acid Reflux (GERD) N History of abnormal pap N Cancer N Stroke N Varicosities N Neurologic/Epilepsy N Endometriosis N High Cholesterol N Headaches N Fibromyalgia N Kidney Disease N Heart Problems N Kidney or Bladder Problems N Thyroid Problems N GI Problems N Eating Disorder [...] History Statement/Question Response Date of Last Mammogram Date of LMP Was last menstrual period normal N STIs/STDs N HPV Vaccine Y Current Control Method IUD Are cycles usually normal N Date of Last Colonoscopy 05/26/2023 Sexually Active? Y IUD Menses Monthly N Age of first menstrual cycle 13 Date of Last Pap Smear Sexual Problems? N Desired Control Method IUD 05/26/2023 N Obstetrics History GPAL:G 0 P 0 0 0 0 Type Value Living 0 Total 0 Past Encounters Encounter ID Performer Location Encounter Start Date Encounter Closed Date Diagnosis/Indication Diagnosis SNOMED-CT Code Diagnosis ICD10 Code Diagnosis IMO Codes Diagnosis Note [id number] BENITA FISHER, VISHAL [place] [address] [address] 08/07/2025 12:15:56 08/07/2025 12:46:49 Well woman health examination 634777885 Z01.419 [id number] Annual gynecologi reece exam performed. Patient will come back in a year unless there are new symptoms. Suggest Calcium with Vitamin D if not eating in diet. Patient advised to get annual flu shot. Recommend yearly physicals and perform monthly breast exams. Genetic testing is available for patients with family history of cancer. Engage in safe sexual practices, use condoms. Encouraged to have daily exercise. Avoid tobacco and illicit drugs, moderation of alcohol. If BMI greater than 25 dietary consult advised. If you have any questions please call or email. Pap smear- pap due at age 21 y/o laboratory evaluation - PCP STI testing - declined A Mirena IUD prevents for up to 8 years, and also helps with heavy periods for up to 5 years in women who choose an IUD for control. Mirena IUD expires 08/31/2032 . Health Concerns Section Related Observation LastModified by Organization Detai ls LastModified Time None Recorded Concern Status LastModified by Organization Details LastModified Time None Recorded Payers Encounter Date Sequence Insurance Name Policy Number Policy Jimenez Covered Member ID Jimenez Member ID Guarantor Name 08/07/2025 1 [employer] ( - PPO) Mykel Casanova [id number] Mykel Casanova Notes Date Note Type Note Provider Name and Address Organization Details Recorded Time 5 text/html Annual GYNReported by PatientGenitourinary symptomsFor urinary symptoms, patient reportsno hematuriaandno incontinence. For vulva, patient reportsno genital lesion. For vagina, patient reportsnormal vaginal discharge. For menstrual cycle, (no periods with iud).Breast symptomsFor breast, patient reportsno breast pain,no breast lump, andno nipple discharge.Endocrine symptomsFor sexual complaints, patient reportsno sexual complaints,no pain during intercourse, andnormal libido. For menopausal symptoms, patient reportsno menopausal symptomsandnormal vaginal lubrication.Psychological symptomsFor psychological symptoms, patient reportsno depression,no anxiety, andno pmdd.Preventative measuresFor preventive measures, patient reportsencourage self breast examination,encourage regular exercise,encourage no tobacco use, andencourage regular mammograms starting age 40. Patient presents for annual well woman exam. Patient denies concerns today. BENITA FISHER, VISHAL [address], [place], [address], [place] [facility] 08/07/2025 12:45:14 OBGyn Episode No OBEpisode recorded.
--- OUTSIDE RECORDS SUMMARY | 2025-08-28 11:48 | XMS_ITS | Clinical Summary ---
Author Organization [facility] Address [address] [place] [phone] Phone Care Team Providers Care Media Relations Director Name Role Phone Provider, Unknown Primary Care [...] on file Legal Sex Female 8:19 AM PROJECT CONSULTANT Gender Identity Not on file Sexual Orientation Not on file Last Filed Vital Signs Vital Sign Reading Time Taken Comments Blood Pressure 124/76 09/10/2021 9:00 AM PROJECT CONSULTANT Pulse 103 09/10/2021 9:00 AM PROJECT CONSULTANT Temperature 36.7 C (98.1 F) 09/10/2021 9:00 AM PROJECT CONSULTANT Respiratory Rate 15 09/10/2021 9:00 AM PROJECT CONSULTANT Oxygen Saturation 97% 09/10/2021 9:00 AM PROJECT CONSULTANT Inhaled Oxygen Concentration - - Weight 73.9 kg (162 lb 14.4 oz) 09/10/2021 9:00 AM PROJECT CONSULTANT Height - - Body Mass Index - - Plan of Treatment Health Maintenance Due Date Last Done Comments Hepatitis C Virus (HCV) Screening 2005 Hepatitis B Immunization (2 of 3 - 3-dose series) 2005 2005 Human Papillomavirus (HPV) Immunization (2 - 2-dose series) 10/24/2020 04/23/2020 Meningococcal B Immunization (1 of 2 - Standard) 2021 Influenza Immunization (#1) 2025 SARS-COV-2 Immunization ( season) 2025 08/18/2021, 02/04/2021, 01/16/2021 Respiratory Syncytial Virus (RSV) Immunization (Adult) (1 - 1-dose 75+ series) 2080 Pneumococcal Immunization Combined Completed 04/29/2006, 2005, 2005, Additional history exists Hepatitis A Immunization Discontinued 05/03/2008, 10/07 Measles Mumps Rubella (MMR) Immunization Discontinued 12/25/2009, 04/29/2006 Varicella Immunization Completed 12/25/2009, 2005 DTaP/Tdap/Td Immunization Discontinued 2015, 2005, 2005, Additional history exists TdaP Immunization Completed 03/01/2016 Meningococcal Immunization (ACWY) Aged Out 2016 No longer eligible based on patient's age to complete this topic Rotavirus Immunization Aged Out No lo nger eligible based on patient's age to complete this topic Insurance [facility] Care Teams Media Relations Director Relationship Specialty Start Date End Date Provider, Unknown UNKNOWN PCP - General 09/10/21
--- OUTSIDE RECORDS SUMMARY | 2025-08-28 11:48 | XMS_ITS | Data Portability ---
Author Organization [facility] Address [address] [place] [address] [place] [address] Care Team Providers Care General Forecaster Name Role Phone ELVA AG Primary Care Provider [phone] Assessment Encounter Date Assessment Date Assessment LastModified by Organization Details LastModified Time 08/07/2025 08/07/2025 Annual gynecological exam performed. Patient will come back in a year unless there are new symptoms. [email or web address] Not available 08/07/2025 12:16:45 Plan of Treatment Reminders Order Date Submit Date Provider Last Modified By Organization Details Last Modified Time Details Appointments [facility] 2025 11:00A M BENITA FISHER NP Not available Not available Not available Lab None recorded. Referral None recorded. Procedures None recorded. Surgeries None recorded. Imaging US, transvagi nal 2024 025 [email or web address] [place], [address], [place], [address], 10/03/2024 08:27:19 US, transvagi nal 2024 025 [email or web address] [place], [address], [place], [address], 09/24/2024 15:03:57 Medication Orders Mirena 21 mcg/24 hr (up to 8 years) 52 mg intrauter ine device 2023 024 [email or web address] [facility] #[id number], [address], [place], [place], [id number], 08/22/2024 16:12:40 Viorele (28) 0.15 mg-0.02 mg (21)/0.01 mg (5) tablet 2023 025 DE[id number], [address], [place], [place], [id number], 08/07/2025 12:24:39 Patient TargetsNo targets recorded. Patient InstructionsNo instructions recorded. Reason for Referral None Reported. Results Created Date Observation Date Name Description Value Unit Range Abnormal Flag Note LastModifiedBy Organization Detail LastModifiedTime 09/24/1909/26/2024 , trans vagin al No observ ation record ed. [email or web address] [place] [address], [place], [address], 09/26/2024 13:46:32 10/01/19 25 10/01/2024 , trans vagin al No observ ation record ed. [email or web address] [place] [address], [place], [address], 10/01/2024 17:58:42 10/01/19 25 10/01/2024 US, trans vagin al No observ ation record ed. DEYANIRA Phillips [address], [place], [address], 10/18/2024 10:49:03 Result Notes None recorded. Problems Name Problem SNOMED Code Status Onset Date Resolution Date Notes Provider Name and Address Organization Details Recorded Time Finding of menstrual bleeding Completed 201804/29/2021 Menorrhag ia;Record ed Elsewhere : No Locati on: [facility] So urce: EHR Chron ic: N Practic e ID: [id number] Bill able Time: 03:30:00 PM Lola Read [facility] [place] - [facility] 18:04:10 Pain in female genitalia Completed 201904/29/2021 Dysmenorr hea;Recor ded Elsewhere : No Locati on: [facility] So urce: EHR Chron ic: N Practic e ID: [id number] Bill able Time: 04:30:00 PM Lola Jacek joanna, [facility] 18:04:08 Finding of regularit y of menstrual cycle Completed 201904/29/2021 Irregular bleeding; Recorded Elsewhere : No Locati on: [facility] So urce: EHR Chron ic: N Practic e ID: [id number] Bill able Time: 04:30:00 PM Lola Raymondtz joanna, [facility] 18:04:11 Problem Notes None recorded. Procedures Surgical History Date Name Laterality Status Provider Name and Address Organization Details Recorded Time 08/22/20 24 IUD Insertion completed BENITA FISHER NP [address], [place], [address], [facility] 08/22/2024 16:15:57 05/26/[address] [facility] 08/01/2024 11:04:44 05/26/20 23 Date of Last Colonoscopy completed [facility] 08/01/2024 11:04:44 05/26/20 23 colonoscopy completed Ariana Chávez VISHAL- [address], [place], [address], [facility] 06/22/2023 17:34:48 04/05/20 21 extraction of wisdom tooth completed Lola Read [facility] 04/29/2021 18:07:06 Orthopedic Surgery completed Loladuncan Read [facility] 12/29/2022 17:08:07 Imaging Results None recorded. Procedure Notes None recorded. Medical Equipment None Reported. Allergies Allergen ID Allergen Name Allergen Category Reaction Reaction Severity Criticality Documentation Date Start Date Code Code System Note Provider Name and Address Organization Details Recorded Time 73799 latex environme nt,medica tion Not available Not available Not available 08/22/2020 57836 91 RxNorm Comme nt: Locat ion: Neil Ortega s Krish r; [facility] 14:17:56 Medications Name Sig Start Date Stop Date Status Note LastModified by Organization Details LastModified Time amoxicill in 500 mg capsule 08/01 completed Not Available Not Available Not Available Mirena 21 mcg/24 hr (up to 8 years) 52 mg intrauter ine device Take 1 device by intraute rine route. 2023 active Not Available Not Available Not Avai lable azithromy inocecnia 250 mg tablet 08/01 completed Not Available Not Available Not Available Loestrin Fe 09/24 (28-Day) 1 mg-20 mcg (21)/75 mg (7) tablet take 1 tablet by oral route every day continuo usly will skip placebo week 04/29 completed Prescrib ed Elsewher e: No [facility] odify By: valentin ireland DateTime : 08/21/20 03:30:00 PM Not Available [...] Prescrib ed Elsewher e: No Locat ion: Flako lamas [facility] odify By: yandel gamingt Enco unter DateTime : 05/31/20 03:15:00 PM Not Available Not Available Not Available Lo Loestrin Fe 1 mg-10 mcg (24)/10 mcg (2) tablet take 1 tablet by oral route every day 08/21 completed Prescrib delma Terrell e: No Locat ion: [facility] odify By: chandrika Chong er [...] and Address Organization Details Last Updated DateTime 09/24/2024 167.64 cm 88 % 27.1 kg/m2 90157.8 g 114/78 mm[Hg] Madelin Rollins [facility] 5 09:53:52 Date Recorded Body height Body mass index (BMI) Body mass index (BMI) [Percentile] Per age and sex Body weight Systolic And Diastolic Provider Name and Address Organization Details Last Updated DateTime 10/19/2024 167.64 cm 27.3 kg/m2 88 % 23754.1 1 g 121/76 mm[Hg] Cristin Valdes [facility] 5 10:05:42 Date Recorded Body height Body mass index (BMI) [Percentile] Per age and sex Body mass index (BMI) Body weight Systolic And Diastolic Provider Name and Address Organization Details Last Updated DateTime 08/07/2025 167.64 cm 87 % 27.3 kg/m2 45260.5 5 g 132/84 mm[Hg] [facility] 5 12:23:39 Date Recorded Body height Body mass index (BMI) [Percentile] Per age and sex Body mass index (BMI) Body weight Systolic And Diastolic Provider Name and Address Organization Details Last Updated DateTime 08/22/2024 167.64 cm 84 % 26 kg/m2 84479.3 7 g 123/85 mm[Hg] [facility] 4 16:03:16 Social History Question Answer Notes LastModified by Organizat ion Details LastModified Time Tobacco Smoking Status Never [facility] 12/29/2022 17:08:07 If You Are , What Was Your Level Of Alcohol Consumption Prior To ? None [email or web address] Information not available 12/29/2022 How Many Years Have You Consumed Alcohol? 0 [email or web address] Information not available 08/22/2024 Are You Blind Or Do You Have Difficulty Seeing? Yes [email or web address] Information n ot available 08/01/2024 What Is Your Level Of Caffeine Consumption? Moderate [email or web address] Information not available 12/29/2022 How Much Tobacco Do You Chew? None [email or web address] Information not available 12/29/2022 In The 14 Days Before Symptom Onset, Have You Had Close Contact With A Laboratory-confirm ed COVID-19 While That Case Was Ill? No [email or web address] Information n ot available 04/29/2021 In The 14 Days Before Symptom Onset, Have You Had Close Contact With A Person Who Is Under Investigation For COVID-19 While That Person Was Ill? No [email or web address] Information not available 04/29/2021 Have You Been To An Area Known To Be High Risk For COVID-19? No [email or web address] Information not available 04/29/2021 Are You Deaf Or Do You Have Serious Difficulty Hearing? No Information not available 04/29/2021 What Type Of Diet Are You Following? REGULAR [email or web address] Information n ot available 04/29/2021 What Is The Highest Grade Or Level Of School You Have Completed Or The Highest Degree You Have Received? GO46016-1 [email or web address] Information not available 12/29/2022 Are There Any Guns Present In Your Home? Yes [email or web address] Information not available 12/29/2022 Do You Use Protection During Sex? Always [email or web address] Information not available 12/29/2022 Do You Use Your Seat Belt Or Car Seat Routinely? Yes [email or web address] Information not available 04/29/2021 Do You Have Smoke And Carbon Monoxide Detectors In Your Home? Yes [email or web address] Information not available 04/29/2021 How Much Tobacco Do You Smoke? No Information not available 08/01/2024 Do You Use Sunscreen Routinely? Yes [email or web address] Information not available 04/29/2021 Has Tobacco Cessation Counseling Been Provided? No [email or web address] Information not available 12/29/2022 Have You Used IV Drugs? No Information not available 12/29/2022 Do You Have Difficulty Walking Or Climbing Stairs? No [email or web address] Information not available 12/29/2022 Sex: Unknown Functional Status Question Answer Note LastModified by Organizat ion Details LastModified Time Do you use any illicit or recreational drugs? No [email or web address] Information not available 04/29/2021 Do you or have you ever used any other forms of tobacco or nicotine? No Information not available 12/29/2022 What is your level of alcohol consumption? None [email or web address] Information not available 04/29/2021 Are you able to walk independently without assistance or assistive devices? 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 No [email or web address] Information not available 12/29/2022 What is your exercise level? Occasional [email or web address] Information not available 04/29/2021 Mental Status Question Answer Note LastModified by Organization D etails LastModified Time Do you feel stressed (tense, restless, nervous, or anxious, or unable to sleep at night)? BP59959-5 [email or web address] Information not available 08/22/2024 Family History Relationship Description Onset Age of this Age Resolved Age Notes LastModified by Organization Details LastModified Time Mother Polycystic ovary syndrome [email or web address] Not available 04/29 18:06:28 Notes:Mother: Polycystic ova [...] ICD10 Code Diagnosis IMO Codes Diagnosis Note [id number] Jenae Villa CNM [place] [address] [address] 04/29/2021 17:39:24 04/29/2021 18:23:12 Dysmenorrhea 525929929 N94.6 Gynecologi c examination 41926924 Z01.419 [id number] Jenae Villa CNM [place] [address] [address] 12/29/2022 16:54:45 12/30/2022 15:54:27 Dysmenorrhea 320007116 N94.6 resolved with ocp continue until wwe [id number] Ariana Chávez , [facility] [address] [address] 06/22/2023 17:15:32 06/23/2023 08:41:23 Gynecologic examination 06120954 Z01.419 Take Calcium with Vitamin D 1200mg [...] Screen naDexa Screen naRoutine Labs na Dysmenorrhea 775890059 N 94.6 Happy on ocpRF sent x [id number] Parish Cordero MD [place] [address] [address] 08/01/2024 10:52:47 08/01/2024 12:06:15 Contraception care management 704611404 Z30.9 Discussed the risks, benefits, and alternativ es to Mirena IUD and Copper IUD. Discussed insertion and removal process. Discussed bleeding profile with each. Questions answered. Will schedule insertion with menses, pt to call office when she starts her next period. Patient to continue taking OCPs until insertion. Patient to take 600 mg ibuprofen before insertion. [id number] Parish Cordero MD [place] [address] [address] 08/22/2024 15:42:19 08/22/2024 16:18:39 Insertion of intrauterine contraceptive device 79387692 Z30.430 She has been counseled on all [...] take for one more month. Refills sent. [id number] Parish Cordero MD [place] [address] [address] 09/24/2024 09:36:47 09/24/2024 10:15:58 IUD check 778033650 Z30.431 Discussed that IUD strings were not visible on exam. Will check IUD placement with transvagin al ultrasound to ensure correct positionin g.- Mirena IUD placed 08/22/24, due for removal 08/22/32- discussed safe sex practices [id number] Parish Cordero MD [place] [address] [address] 10/01/2024 11:49:03 10/01/2024 12:32:08 Mechanical complication of intrauterine contraceptive device 082612583 T83.39XA [id number] SANIA MAZARIEGOS MD [place] [address] [address] 10/19/2024 09:58:19 10/22/2024 12:54:02 IUD threads lost 510135152 T83.39XD - IUD inserted 08/2024- no strings visualized on string check 1 month later- pelvic US with normally placed IUD- discussed IUD still working for contracept ion with missing strings- discussed removal methods if strings not visualized at time of removal- simple R ovarian cyst seen on US as well; normal functional cyst, no follow up needed [id number] BENITA FISHER NP [place] [address] [address] 08/07/2025 12:15:56 08/07/2025 12:46:49 Well woman health examination 070650577 Z01.419 [id number] Annual gynecologi reece exam performed. Patient will [...] Recorded Advance Directives Directive None Recorded Payers Insurance Date Sequence Insurance Name Policy Number Policy Jimenez Covered Member ID Jimenez Member ID Guarantor Name 08/05/2025 1 [employer] ( - PPO) Mykel Casanova [id number] Mykel Casanova 07/25/2024 1 [employer] - [employer]IME () Mykel Abbasiwin [id number] Mykel Casanova 10/18/2024 1 [employer] - [employer] ( - PPO) Mykel Casanova [id number] Mykel Casanova Notes Date Note Type Note Provider Name and Address Organization Details Recorded Time 4 text/html Patient presents for Mirena IUD insertion. Informed consent obtained.Patient currently on period, denies missing any control pills or having unprotected intercourse. BENITA FISHER NP [address], [place], [address], [facility] 08/22/2024 16:19:09 5 text/html Presents today for IUD check. Had mirena IUD placed 08/22/24. Has had some intermittent, mid-pelvic cramping since insertion. Patient had one period since insertion that was light and lasted 3-4 days. She is overall happy with the IUD. BENITA FISHER NP [address], [place], [address], [facility] 09/24/2024 10:14:29 5 text/html Patient presents for ultrasound follow up. Was recently seen for IUD insertion and on string check, no strings were visualized. She denies bleeding or pain. SANIA MAZARIEGOS MD [address], [place], [address], [facility] 10/20/2024 00:05:06 5 text/html Annual GYNReported by PatientGenitourinary symptomsFor [...] woman exam. Patient denies concerns today. BENITA FISHER NP [address], [place], [address], [facility] 08/07/2025 12:45:14 OBGyn Episode No OBEpisode recorded.
--- NOTE | 2025-08-28 13:10 | ED_ITS ---
HPI - URI/Sore Throat General Chief Complaint: Upper Respiratory Infection Stated Complaint: strep test Time Seen by Provider: 08/28/25 13:00 Source: patient, RN notes reviewed and old records reviewed Mode of arrival: ambulatory Limitations: no limitations History of Present Illness HPI Narrative: 20 year old female who presents to [facility] with complaints of sore throat and congestion since yesterday. Patient reports she has been taking DayQuil and Benadryl for her symptoms and did take Ibuprofen yesterday. Patient reports no body aches or any known fevers chills or sweats. Patient reports no known ill contacts. MD elicited complaint: cough and sore throat Pertinent past history: other (strep throat and ear infection) Onset (ago): day(s) (since yesterday) Consistency: constant Pain scale (0-10): 6 Able to tolerate fluids by mouth: Yes Treatments prior to arrival: ibuprofen and other ( DayQuil and Benadryl) Related Data Home Medications ?Medication ?Instructions ?Recorded ?Confirmed ?Last Taken ?Type desogestrel-e.estradiol 0.15 1 tablet PO DAILY 2 10/15/22 Unknown History mg-0.02 mg(21)/e.estrad 0.01 mg(5) tablet (Viorele (28)) spironolactone 100 mg tablet 100 mg PO DAILY 01/20/22 10/15/22 Unknown History trifarotene 0.005 % topical cream topical 08/28/25 Un known History (Akstephanie) Allergies Allergy/AdvReac Type Severity Reaction Status Date / Time No Known Allergies Allergy Unknown Verified 08/28/25 12:35 Review of Systems Review of Systems: CONSTITUTIONAL: Denies malaise, chills, sweats, or fever. EYES: Denies visual changes, redness, or discharge. ENT: Reports rhinorrhea, congestion, sinus pain, no otalgia and +sore throat. CARDIOVASCULAR: Denies chest pain, palpitations, or edema. RESPIRATORY: Reports no cough.? Denies dyspnea. GASTROINTESTINAL: Denies abdominal pain, nausea, vomiting, diarrhea SKIN: Denies rash or itching. MUSCULOSKELETAL: Denies myalgia. NEUROLOGIC: Denies headache. All systems reviewed & are unremarkable except as noted in HPI and below PMFSH Past Medical History Medical History (Updated 08/29/25 @ 20:54 by Katy Britton APRN) Seasonal allergies Right ankle injury 2017 Acne Surgical History Surgical History [place] teeth extracted Social History Social History Smoking status: Never smoker Alcohol intake: never Substance use: never Occupation/Education: student Gender identity (if verbalized by the patient): Female Comments At time of signature, agree with nursing past medical, surgical, social and family history. There is no relevant family history pertinent to the presenting complaint Exam Narrative: GENERAL: Well-appearing, well-nourished, and in no acute distress. HEAD: Normocephalic EYES: PERRLA, conjunctivae clear ENT: Nares clear, turbinates edematous and erythematous, clear discharge sinus pressure.. Mucous membranes moist. TM pearly luu with dull light reflex bilaterally; no tragal tenderness. Oropharynx erythematous without lesions. Tonsils red not enlarged and without exudate, no drooling, no hoarseness, no trismus, uvula midline.post nasal discharge NECK: Supple. No lymphadenopathy CHEST: Clear to auscultation, breath sounds equal. No wheezing, rhonchi, rales, or stridor. No respiratory distress, speaks in full sentences. no cough noted,SAO2 99% on room air HEART: Regular rate and rhythm. No murmur heard. SKIN: Warm, dry, no rash. NEURO: Alert and oriented x3. PSYCH: Normal mood and affect Course Course Level of Care: Express Care Visit Vital Signs Vital signs: Vital Signs Temperature 37.1 C 08/28/25 11:47 Pulse Rate 93 08/28/25 11:47 Respiratory Rate 20 08/28/25 11:47 Blood Pressure 150/76 H 08/28/25 11:47 Pulse Oximetry 99 08/28/25 11:47 Oxygen Delivery Room Air 08/28/25 11:47 Temperature 37.1 C 08/28/25 11:47 Pulse Rate 93 08/28/25 11:47 Respiratory Rate 20 08/28/25 11:47 Blood Pressure 150/76 H 08/28/25 11:47 Pulse Oximetry 99 08/28/25 11:47 Oxygen Delivery Room Air 08/28/25 11:47 reviewed MDM MDM Narrative Medical decision making narrative: Patient with complaints of sore throat and nasal congestion with negative strep test with culture sent. Rx for Medrol dos pack and Flonase sen to patient's pharmacy and instructed to use OTC pain medication and sinus medications for symptom control. Patient agrees with plan of care. Anticipatory guidance and reasons to seek care in the ED reviewed with understanding voiced. Differential Diagnosis Differential Diagnosis: Differential diagnostic considerations for upper respiratory infection include upper respiratory infection, croup, otitis media, sinusitis, viral infection, bronchitis, influenza, pharyngitis, strep, uvulitis.? Lab Data Lab results narrative: strep screen negative culture sent Labs: Lab Results 08/28/25 Range/Units 13:11 POC Grp A Strep Screen Negative (Negative) Critical Care Time Critical Care Time Critical Care Time: No Discharge Plan Discharge Clinical Impression: Pharyngitis Qualifiers: Pharyngitis/tonsillitis etiology: unspecified etiology Qualified Code(s): J02.9 - Acute pharyngitis, unspecified Patient Disposition: Home Condition: Stable Instructions: Antibiotic Form, Pharyngitis (ED) Additional Instructions: Increase fluids especially juices and water Orol-mwz-fhlsand cough and cold medicine of your choice for your symptoms Zyrtec Claritin or Lakesha daily include include plain Sudafed Steroids as directed--take with food Flonase nasal spray heat to the face 20-30 minutes 4-6 times a day for pain Salt water gargles, throat lozenges or throat sprays as desired Tylenol and ibuprofen for pain or fever monitor for any temperatures Your strep test today was negative. A throat culture will be sent to the laboratory for further testing. IF the test is positive, you will receive a phone call within 48 hours and an appropriate antibiotic will be initiated at that time. If your symptoms persist, change or worsen significantly before you can contact your personal physician then please, without delay, go to the emergency department for further evaluation. Follow-up with PCP in 7-10 days or sooner if needed Follow up with PCP soon in regards to your blood pressure which is elevated above threshold for referral. Blood pressure above 120/80 may indicate pre- hypertension.150/76 Patient Language: Palauan Prescriptions: New methylprednisolone [Medrol (Pola)] 4 mg tablets,dose pack See Rx Instructions .ROUTE .COMPLEX Qty: 21 0RF Rx Instructions: orally per package directions take with food fluticasone propionate [Flonase Allergy Relief] 50 mcg/actuation spray,suspension 1 spray intranasal DAILY Qty: 16 0RF Rx Instructions: administer into each nostril No Action spironolactone 100 mg tablet 100 mg PO DAILY desog-e.estradiol/e.estradiol [Viorele (28)] 0.15-0.02 mgx21 /0.01 mg x 5 tablet 1 tablet PO DAILY Aklief 0.005 % cream TOPICAL Follow-up/Referrals: Daniel,Radha Collins APRN [Primary Care Provider, Unknown] Time of Disposition: 13:34 Quality [place] Coma Scale Eyes: Open Verbal: Oriented and Alert Motor: Follows Commands [place] Coma Total Score: 15
[2025-08-28 13:27] LABS: EDSTREPNEGPOS1 Negative (Negative)
== END 2025-08-28 13:36 | disposition home or self-care (01) ==
PROVIDERS: Emergency Provider Registered Nurse; PCP Nurse Practitioner
DX: J02.9 Acute pharyngitis, unspecified (principal)
CPT/HCPCS: 87081; 87880; 99213; G0463